=== PATIENT | male | born 1990 | race Caucasian/White ===

== ENCOUNTER 2021-03-29 08:38 | Emergency (ER) | payer MEDICAID ==
[~2021-03-29] VITALS: Ht 182.9 cm; Wt 90.9 kg
[~2021-03-29 08:38] MED LIST: DOCU100C40 PO; HYDR-4383 PO; IBUP-1986 PO
[2021-03-29 08:49] VITALS: BP 120/85
[2021-03-29] MEDS ORDERED: NAPR-56 PO (08:53)
[2021-03-29] MEDS ORDERED: PENI250T2 PO ×2 (08:53→10:06)
== END 2021-03-29 09:02 | disposition home or self-care (01) ==
LOC: ER 08:39
DX: K04.7 Periapical abscess without sinus (principal); K00.7 Teething syndrome; F17.200 Nicotine dependence, unspecified, uncomplicated; F15.90 Other stimulant use, unspecified, uncomplicated; Z79.2 Long term (current) use of antibiotics; Z79.899 Other long term (current) drug therapy
CPT/HCPCS: 99283

== ENCOUNTER 2021-04-03 20:38 | Emergency (ER) | payer MEDICAID ==
[~2021-04-03] VITALS: Ht 182.9 cm; Wt 86.3 kg
[~2021-04-03 20:38] MED LIST changes: +NAPR-56 PO; +PENI250T2 PO
--- NOTE | 2021-04-03 22:11 | NUR ---
UPON CHECKING ON PT FOUND HIM WITH ELEVATED RESPIRATIONS AND ACTING THOUGH HE WAS HAVING A SYNCOPAL EPISODE. AFTER A SUCCESSFULL ATTMEPT AT [facility] PT, AND REASSURING HIM THAT HIS VITALS ARE NORMAL, I NOTIFIED DR ARAUZ. AT NO TIME WAS THE PT LOW SP02 OR ALOC. PT WAS CONCIOUS AT ALL TIMES. DR ARAUZ STATES HE ALSO WITNESSED PT DURING AN "EPISODE" AND IS NOT CONCERNED.
--- NOTE | 2021-04-03 22:52 | NUR ---
PT STABLE IN ROOM, WAITING TO BE SEEN BY
[2021-04-03 23:36] LABS: BASOPHILS # (AUTO) 0.1 X10'3 (0-0.2); BASOPHILS % (AUTO) 0.6 % (0-1); EOSINOPHILS # (AUTO) 0.2 X10'3 (0-0.9); EOSINOPHILS % (AUTO) 2.4 % (0-6); HEMATOCRIT 42.8 % (42.0-52.0); HEMOGLOBIN 14.7 g/dl (14.0-17.9); LYMPHOCYTES % (AUTO) 22.5 % (21-51); MEAN CORPUSCULAR HEMOGLOBIN 32.1 PG (27.0-31.0); MEAN CORPUSCULAR HGB CONC 34.3 g/dL (33.0-36.5); MEAN CORPUSCULAR VOLUME 93.7 FL (78-98); MONOCYTES # (AUTO) 0.6 X10'3 (0-0.9); MONOCYTES % (AUTO) 6.6 % (2-12); NEUTROPHILS # (AUTO) 6.1 X10'3 (1.8-7.7); NEUTROPHILS % (AUTO) 67.9 % (42-75); PLATELET COUNT 278 X10'3 (140-440); RED BLOOD COUNT 4.56 X10'6 (4.70-6.10); RED CELL DISTRIBUTION WIDTH 13.7 % (11.5-14.5)
[2021-04-03 23:58] LABS: ALANINE AMINOTRANSFERASE 35 U/L (12-78); ALBUMIN 4.4 G/DL (3.4-5.0); ALBUMIN/GLOBULIN RATIO 1.2 (1.1-1.5); ANION GAP 14 (8-16); ASPARTATE AMINO TRANSFERASE 31 U/L (10-37); BILIRUBIN,TOTAL 0.2 MG/DL (0.1-1.0); BLOOD UREA NITROGEN 17 MG/DL (7-18); BUN/CREATININE RATIO 15.2 (5.4-32.0); CHLORIDE 106 MMOL/L (99-107); CREATININE 1.12 MG/DL (0.60-1.10); ETHANOL 0.142 GM/DL (0.0-0.010); GLUCOSE 95 MG/DL (70-104); POTASSIUM 3.8 MMOL/L (3.5-5.1); SODIUM 145 MMOL/L (135-145); TOTAL CARBON DIOXIDE 25.5 MMOL/L (24-32); TOTAL PROTEIN 8.2 G/DL (6.4-8.2); eGFR 76 ML/MIN
[2021-04-04 00:51] VITALS: BP 101/69
== END 2021-04-04 00:51 | disposition home or self-care (01) ==
LOC: ER 20:38
DX: R55 Syncope and collapse (principal); Z20.822 Contact with and (suspected) exposure to COVID-19; F10.129 Alcohol abuse with intoxication, unspecified; R07.89 Other chest pain; R06.02 Shortness of breath; F15.90 Other stimulant use, unspecified, uncomplicated; Z90.89 Acquired absence of other organs; Z79.2 Long term (current) use of antibiotics; Z79.899 Other long term (current) drug therapy; Y90.0 Blood alcohol level of less than 20 mg/100 ml
CPT/HCPCS: 36415; 71046; 80053; 80320; 84443; 84484; 85025; 87635; 93005; 99285; C9803

== ENCOUNTER 2021-09-27 21:42 | Emergency (ER) | payer MEDICAID ==
[~2021-09-27 21:42] MED LIST changes: -NAPR-56 PO; -PENI250T2 PO
== END 2021-09-27 22:12 | disposition left against medical advice (07) ==
LOC: ER 21:43
DX: R60.9 Edema, unspecified (principal); Z53.21 Procedure and treatment not carried out due to patient leaving prior to being seen by health care provider

== ENCOUNTER 2022-06-15 11:15 | Emergency (ER) | payer MEDICAID ==
[~2022-06-15] VITALS: Ht 182.9 cm; Wt 77.0 kg
[2022-06-15 11:18] VITALS: BP 107/86
[2022-06-15] MEDS ORDERED: HYDROcodone/acetaminophen 10/325mg tab PO ONE (11:40)
[2022-06-15] MEDS ORDERED: tetanus & diphtheria toxoid (Td) vaccine 0.5ml IMVAC ONE (11:45)
[2022-06-15] MEDS ORDERED: LIDOcaine 1% W/epiNEPHrine 1:100,000 20ml vial SQ ONE (12:10)
[2022-06-15] MEDS ORDERED: LIDOcaine 1% W/epiNEPHrine 1:100,000 20ml vial IJ ONE (12:21)
[2022-06-15] MEDS ORDERED: TETanus/Pertussis (Acell)/Diphther VAC/PF (Tdap-Adult) 0.5ml syringe IMVAC ONE (12:25)
--- NOTE | 2022-06-15 14:03 | NUR ---
PT HAD STITCHES ADMINISTERED AND FINGERS, INDEX AND RING FINGER, WRAPPED AND SPLINTED. PT FEELS NO PAIN AT THIS TIME DUE TO ADMINISTRATION OF LIDOCAINE. TOLERATED TX WELL, PT AND READY TO BE DCd
[2022-06-15] MEDS ORDERED: HYDR-3973 PO (14:29)
[2022-06-15] MEDS ORDERED: CEPH500C2 PO (14:29)
== END 2022-06-15 14:39 | disposition home or self-care (01) ==
LOC: ER 11:15
DX: S61.211A Laceration without foreign body of left index finger without damage to nail, initial encounter (principal); S61.215A Laceration without foreign body of left ring finger without damage to nail, initial encounter; F17.200 Nicotine dependence, unspecified, uncomplicated; F15.90 Other stimulant use, unspecified, uncomplicated; Z90.49 Acquired absence of other specified parts of digestive tract; Z79.899 Other long term (current) drug therapy; W26.8XXA Contact with other sharp object(s), not elsewhere classified, initial encounter; Y93.89 Activity, other specified; Y92.89 Other specified places as the place of occurrence of the external cause; Y99.8 Other external cause status
CPT/HCPCS: 12001; 73130; 90471; 90715; 99283; A6449

== ENCOUNTER 2023-01-16 01:57 | Emergency (ER) | payer MEDICAID ==
[~2023-01-16] VITALS: Ht 182.9 cm; Wt 77.1 kg
[2023-01-16 02:29] VITALS: TEMP 98.4
[2023-01-16] MEDS ORDERED: bacitracin 15gm ointment TP ONE (02:30)
[2023-01-16 02:45] LABS: ALANINE AMINOTRANSFERASE 25 U/L (12-78); ALBUMIN 4.4 G/DL (3.4-5.0); ALBUMIN/GLOBULIN RATIO 1.5 (1.1-1.5); ALKALINE PHOSPHATASE 71 IU/L (46-116); ANION GAP 7 (8-16); ASPARTATE AMINO TRANSFERASE 20 U/L (10-37); BILIRUBIN,TOTAL 0.3 MG/DL (0.1-1.0); BLOOD UREA NITROGEN 20 MG/DL (7-18); BUN/CREATININE RATIO 13.9 (10.0-20.0); CALCIUM 9.8 MG/DL (8.5-10.1); CHLORIDE 102 MMOL/L (99-107); CREATININE 1.44 MG/DL (0.60-1.10); GLUCOSE 122 MG/DL (70-104); POTASSIUM 3.9 MMOL/L (3.5-5.1); SODIUM 138 MMOL/L (135-145); TOTAL CARBON DIOXIDE 28.6 MMOL/L (24-32); TOTAL PROTEIN 7.3 G/DL (6.4-8.2); eCRCL 79 ML/MIN; eGFR 56 ML/MIN
[2023-01-16 02:46] LABS: BASOPHILS % (AUTO) 0.6 % (0-1); EOSINOPHILS # (AUTO) 0.2 X10'3 (0-0.9); EOSINOPHILS % (AUTO) 3.3 % (0-6); HEMATOCRIT 40.7 % (42.0-52.0); HEMOGLOBIN 13.8 g/dl (14.0-17.9); LYMPHOCYTES # (AUTO) 1.6 X10'3 (1.1-4.8); LYMPHOCYTES % (AUTO) 26.9 % (21-51); MEAN CORPUSCULAR HEMOGLOBIN 31.1 PG (27.0-31.0); MEAN CORPUSCULAR HGB CONC 33.9 g/dL (33.0-36.5); MEAN CORPUSCULAR VOLUME 91.7 FL (78-98); MEAN PLATELET VOLUME 7.5 FL (7.4-10.4); MONOCYTES # (AUTO) 0.5 X10'3 (0-0.9); NEUTROPHILS # (AUTO) 3.6 X10'3 (1.8-7.7); NEUTROPHILS % (AUTO) 61.2 % (42-75); PLATELET COUNT 261 X10'3 (140-440); RED BLOOD COUNT 4.43 X10'6 (4.70-6.10); RED CELL DISTRIBUTION WIDTH 12.7 % (11.5-14.5); WHITE BLOOD COUNT 5.8 X10'3 (4.5-11.0)
[2023-01-16 02:52] LABS: PRO BRAIN NATRIURETIC PEPTIDE < 30 PG/ML (0-125)
[2023-01-16 04:45] VITALS: BP 115/77; PULSE 78; RESP 15; O2SAT 98
== END 2023-01-16 05:04 | disposition home or self-care (01) ==
LOC: ER 01:57
DX: S60.512A Abrasion of left hand, initial encounter (principal); S80.211A Abrasion, right knee, initial encounter; R51.9 Headache, unspecified; R20.2 Paresthesia of skin; V26.49XA Other motorcycle driver injured in collision with other nonmotor vehicle in traffic accident, initial encounter; Y93.89 Activity, other specified; Y92.89 Other specified places as the place of occurrence of the external cause; Y99.8 Other external cause status
CPT/HCPCS: 36415; 70450; 71250; 72125; 73130; 73564; 80053; 83880; 84484; 85025; 99285; A6449

== ENCOUNTER 2023-10-10 08:52 | Outpatient (CLI) | payer MEDICAID | END 2023-10-10 23:59 | disposition home or self-care (01) | LOC: RAD 08:52 | PROVIDERS: ATTEND Student in an Organized Health Care Education/Training Program | DX: R51.9 Headache, unspecified (principal) | CPT/HCPCS: 95816 ==